=== PATIENT | male | born 1985 | race Caucasian/White ===

== ENCOUNTER 2016-12-05 10:21 | Emergency (ER) | payer OTHER ==
[~2016-12-05] VITALS: Ht 185.4 cm; Wt 108.9 kg
--- NOTE | ~2016-12-05 | CT2 ---
[facility] A Service of [facility] RADIOLOGY TEXT RESULTS PATIENT: JOSE F BAXTER LOCATION: [facility] : 83 UNIT #: [id number] AGE: [address]: Familia Pillai MD SEX: M ORDER DR: [id number] [facility] [address] [place], [place] [address] [id number] E MR#: [id number] Acc #: [id number] NAME: JOSE F BAXTER : 1985 SEX: M STUDY DATE/TIME: 12/05/2016 13:59 UNIT: [facility] ROOM: STUDY DESCRIPTION: CT Abd and Pelv W Cont Attending Physician: Familia Pillai M.D. Ordering Physician: aFmilia Pillai M.D. Primary Care Physician: Primary Care Physician No MEDICAL IMAGING REPORT This report is preliminary unless electronic signature is present EXAM CT abdomen and pelvis 12/05 INDICATIONS Lower abdominal pain intermittently over the last 2 weeks. History of hepatitis and heroin abuse. TECHNIQUE Axial images obtained through the abdomen and pelvis following IV contrast administration. Multiplanar reformats were obtained. No comparison. This CT exam was performed with one or more of the following radiation dose reduction techniques: automatic control, adjustment of mA and/or kV according to patient size, and iterative reconstruction. FINDINGS ABDOMEN: Lung bases are clear. Gallbladder is unremarkable. No biliary obstruction. Solid organs are normal. No adenopathy or free fluid is seen. Unopacified GI tract is normal. PELVIS: Urinary bladder is normal. No free fluid is seen. The GI tract including the appendix is normal. There is a subtle area of minimal fat stranding in the central pelvic mesentery. This may reflect some mild mesenteric inflammation. Etiology is unclear. IMPRESSION 1. The GI tract including the appendix is normal. 2. Subtle area of fat stranding in the central pelvic and mesentery may reflect a very mild degree of inflammation. Etiology is unclear. The adjacent bowel loops are normal. 3. The remainder of the abdomen and pelvis CT is normal. Dictated by... Judson Bashir Jr., M.D. [facility] A Service of [facility] RADIOLOGY TEXT RESULTS PATIENT: JOSE F BAXTER LOCATION: [facility] : 83 UNIT #: [id number] AGE: [address]: Familia Pillai MD SEX: M ORDER DR: THIS IS AN ELECTRONICALLY VERIFIED REPORT Judson Bashir Jr., M.D. at 12/06/2016 8:29 AM SCOTT/geoff TD: 12/05/2016 22:49 JOB #: [id number] MEDICAL IMAGING REPORT Page 1 of 1 COPY
[2016-12-05 11:03] LABS: BASOPHIL% 0.6 % (0-2.5); EOSINOPHIL# 0.1 X10e3 (0-0.7); EOSINOPHIL% 1.6 % (0.0-7.0); HEMATOCRIT 42.5 % (38.0-50.0); HEMOGLOBIN 14.1 gm/dL (13.0-16.0); LYMPHOCYTE# 2.2 X10e3 (1.0-3.5); LYMPHOCYTE% 34.7 % (17.0-45.0); MEAN CORPUSCULAR HEMOGLOBIN 29.2 PG (28-34); MEAN CORPUSCULAR HGB CONC 33.1 g/dL (30-36); MEAN PLATELET VOLUME 9.1 FL (6.5-11.5); MONOCYTE# 0.4 X10e3 (0-1.0); MONOCYTE% 6.2 % (3.0-12.0); NEUTROPHIL# 3.5 X10e3 (1.5-7.1); NEUTROPHIL% 56.9 % (40-75); PLATELET COUNT 207 X10e3 (140-420); RED BLOOD COUNT 4.83 X10e (3.90-5.60); RED CELL DISTRIBUTION WIDTH 13.8 % (11.0-15.5); WHITE BLOOD COUNT 6.2 X10e3 (4.0-10.5)
[2016-12-05 11:04] LABS: DIFF IND NO
[2016-12-05 11:12] LABS: URINE SOURCE CLEAN CATCH
[2016-12-05 11:22] LABS: URINE APPEARANCE CLEAR; URINE BILIRUBIN NEG (NEG); URINE BLOOD NEG (NEG); URINE COLOR DK YELLOW; URINE GLUCOSE NEG (NEG); URINE KETONE TRACE (NEG); URINE LEUKOCYTE ESTERASE NEG (NEG); URINE NITRATE NEG (NEG); URINE PH 5.5 (5-8); URINE PROTEIN TRACE (NEG); URINE SPECIFIC GRAVITY 1.034 (1.003-1.035)
[2016-12-05 11:26] LABS: CULTURE INDICATED? NO
[2016-12-05 11:31] LABS: ALBUMIN SERUM 4.1 g/dL (3.5-5.0); ALKALINE PHOSPHATASE 58 U/L (32-92); ALT (SGPT) 16 U/L (10-40); AST (SGOT) 20 U/L (10-42); BILIRUBIN,TOTAL 0.3 mg/dL (0.2-2.0); BLOOD UREA NITROGEN 12 mg/dL (9-23); CALCIUM SERUM 9.1 mg/dL (8.4-10.2); CARBON DIOXIDE 23 mmol/L (22-31); CHLORIDE 105 mmol/L (100-111); CREATININE SERUM 0.8 mg/dL (0.6-1.4); GLOM FILT RATE Estimated 118.2 mL/min (>60); GLUCOSE FASTING 147 mg/dL (70-110); LIPASE 20 U/L (22-51); POTASSIUM 3.8 mmol/L (3.5-5.1); PROTEIN TOTAL SERUM 7.3 g/dL (6.0-8.3); SODIUM 136 mmol/L (135-145)
[2016-12-05 11:33] LABS: BILIRUBIN, DIRECT <0.1 mg/dL (0.0-0.2); BILIRUBIN,INDIRECT 0.2 mg/dL (0.0-0.9)
== END 2016-12-05 15:00 | disposition home or self-care (01) ==
LOC: CED 10:21
DX: R10.9 Unspecified abdominal pain (principal); F17.210 Nicotine dependence, cigarettes, uncomplicated
CPT/HCPCS: 36415; 74177; 80048; 80076; 81003; 83690; 85025; 96374; 96375; 99284; J1885; J2405; Q9967